=== PATIENT | male | born 2000 | race Caucasian/White ===

== ENCOUNTER → 2020-07-23 | Outpatient (CLI) | payer MEDICAID ==
[~2020-07-23] MED LIST: ALBU8.5H; BUPRENORP NALOX
[2020-07-23 17:52] LABS: BASO # 0.1 10^3/uL (0.0-0.2); BASO % 0.8 % (0.0-1.0); EOS # 0.1 10^3/uL (0.0-0.5); EOS % 0.8 % (0.0-3.0); HEMATOCRIT 44.2 % (42.0-52.0); HEMOGLOBIN 14.8 g/dl (13.5-17.5); LYMPH # 2.6 10^3/uL (1.5-5.0); LYMPH % 33.9 % (24.0-44.0); MEAN CORPUSCULAR HEMOGLOBIN 30.2 pg (27.0-33.0); MEAN CORPUSCULAR HGB CONC 33.5 g/dl (32.0-36.5); MEAN CORPUSCULAR VOLUME 90.2 fl (80.0-96.0); MONO # 0.4 10^3/uL (0.0-0.8); NEUTROPHILS # 4.5 10^3/uL (1.5-8.5); NEUTROPHILS % 58.8 % (36.0-66.0); PLATELET COUNT, AUTOMATED 230 10^3/uL (150-450); WHITE BLOOD COUNT 7.6 10^3/uL (4.0-10.0)
[2020-07-23 18:02] LABS: ALBUMIN 4.3 GM/DL (3.2-5.2); ALT/SGPT 25 U/L (12-78); BILIRUBIN,TOTAL 0.2 MG/DL (0.2-1.0); BLOOD UREA NITROGEN 22 MG/DL (7-18); CALCIUM LEVEL 9.3 MG/DL (8.5-10.1); CARBON DIOXIDE LEVEL 32 MEQ/L (21-32); CHLORIDE LEVEL 103 MEQ/L (98-107); GLUCOSE, FASTING 78 MG/DL (70-100); POTASSIUM SERUM 4.6 MEQ/L (3.5-5.1); SODIUM LEVEL 138 MEQ/L (136-145); TOTAL PROTEIN 7.7 GM/DL (6.4-8.2)
[2020-07-23 18:05] LABS: APPEARANCE, URINE CLEAR (CLEAR); BACTERIA, URINE AUTO NEGATIVE (NEGATIVE); BILIRUBIN, URINE AUTO NEGATIVE (NEGATIVE); BLOOD, URINE BLOOD NEGATIVE (NEGATIVE); COLOR, URINE YELLOW (YELLOW); GLUCOSE, URINE (UA) AUTO NEGATIVE (NEGATIVE); KETONE, URINE AUTO NEGATIVE (NEGATIVE); LEUKOCYTE ESTERASE, URINE AUTO NEGATIVE (NEGATIVE); MUCUS, URINE SMALL (NEGATIVE); NITRITE, URINE AUTO NEGATIVE (NEGATIVE); PROTEIN, URINE AUTO NEGATIVE (NEGATIVE); RBC, URINE AUTO 0 /HPF (0-3); SQUAMOUS EPITHELIAL CELL UR AU 0 /HPF (0-6); UROBILINOGEN, URINE AUTO 0.2 mg/dL (0.0-2.0); WBC, URINE AUTO 0 /HPF (0-3)
== END ==
LOC: M LRY 12:00
PROVIDERS: ATTEND Nurse Practitioner Family
DX: Z02.89 Encounter for other administrative examinations (principal)

== ENCOUNTER 2020-08-04 13:09 | Emergency (ER) | payer MEDICAID ==
[~2020-08-04] VITALS: Ht 182.9 cm; Wt 77.3 kg
[2020-08-04] MEDS ORDERED: ALBU8.5H (13:22)
[2020-08-04] MEDS ORDERED: BUPRENORP NALOX (13:22)
[2020-08-04 14:53] VITALS: BP 133/81
--- NOTE | 2020-08-21 15:40 | REP ---
RIGHT ANKLE SERIES (REPEAT DICTATION) HISTORY: Right ankle pain, trauma. Preliminary report is provided at the time of exam by [facility]. FINDINGS: Four views of the right ankle demonstrate normal bones, joints, and soft tissues. No fracture or subluxation is seen. IMPRESSION: Negative right ankle radiographs. ANTHONYD
--- NOTE | 2020-08-21 15:41 | REP ---
RIGHT FOOT RADIOGRAPHS: 4-VIEWS (REPEAT DICTATION) HISTORY: Stepped on by a horse. Pain post trauma. Preliminary report provided at the time of the exam by [facility]. FINDINGS: Four views of the right foot show overall normal mineralization. Bones, joints, and soft tissues are radiographically unremarkable. No fracture or subluxation is seen. IMPRESSION: Negative radiographs of the right foot. ADRIEN
== END 2020-08-04 14:55 | disposition home or self-care (01) ==
LOC: M ED 13:09
DX: S90.31XA Contusion of right foot, initial encounter (principal); W55.19XA Other contact with horse, initial encounter; Y92.9 Unspecified place or not applicable; Y93.9 Activity, unspecified; Y99.9 Unspecified external cause status; F19.10 Other psychoactive substance abuse, uncomplicated; J45.909 Unspecified asthma, uncomplicated; Z79.51 Long term (current) use of inhaled steroids

== ENCOUNTER 2020-10-22 21:20 | Emergency (ER) | payer MEDICAID ==
[~2020-10-22] VITALS: Ht 182.9 cm; Wt 85.8 kg
[2020-10-22] MEDS ORDERED: BUPRENORP NALOX SL (22:15)
[2020-10-22] MEDS ORDERED: FLEET ENEMA PR STA (23:18)
[2020-10-22] MEDS ORDERED: MAGNESIUM CITRATE 300 ML BTL PO ONE (23:30)
[2020-10-22] MEDS ORDERED: MIRA3350 PO (23:31)
[2020-10-22 23:50] VITALS: BP 119/74
--- NOTE | 2020-10-23 17:22 | REP ---
INDICATION: constipation vs obstruction. Repeat dictation. Preliminary report is provided at the time of the exam by karime DAVENPORT. COMPARISON: None. TECHNIQUE: KUB: 2 supine views the abdomen are presented. FINDINGS: There is a large amount of formed stool throughout the colon with mild diffuse colonic distention question obstipation constipation. There are few loops of air-filled small bowel in the central abdomen. Psoas margins appear to be symmetric. Flank stripes are intact. No mass, organomegaly or pathologic calcification seen. IMPRESSION: Large amount of formed stool with mild diffuse colonic distention, obstipation constipation pattern. Otherwise negative <Electronically signed by Sami Albert > 10/23/20 [id number]
== END 2020-10-22 23:52 | disposition home or self-care (01) ==
LOC: M ED 21:20
DX: K59.00 Constipation, unspecified (principal); J45.909 Unspecified asthma, uncomplicated; F11.10 Opioid abuse, uncomplicated; Z79.899 Other long term (current) drug therapy